=== PATIENT | female | born 1955 | race Caucasian/White ===

== ENCOUNTER → 2018-11-26 | Outpatient (CLI) | payer OTHER ==
[~2018-11-26] MED LIST: ATOR20TA22 PO; CALC-515 PO; CELE-1 PO; CEPH250C37 PO; CYCL1DRO6 OP; ESC10 PO; EST625 PO; ESTR42.5 VG; HYDR-385 PO; LEVO50TA86 PO; LEVO75TA68 PO; MULT-1335 PO; PER PO; [UNRECOGNIZED DRUG - CODE] PO
--- NOTE | 2018-12-07 13:32 | RADIOLOGY IMAGING REPORT ---
FACILITY: [facility] - [place] PATIENT NAME: PATRICK LY : [id number] MR: [id number] V: [id number] EXAM DATE: [id number] ORDERING PHYSICIAN: JESSICA PEDROZA TECHNOLOGIST: Melody Reyez PROCEDURE:BILATERAL DIGITAL SCREENING MAMMOGRAM WITH CAD ASSISTED INTERPRETATION & 3D TOMOSYNTHESIS COMPARISON:Prior mammograms 02/05/16, 07/18/13, 07/06/13. INDICATIONS:SCREENING FINDINGS: The breasts are heterogeneously dense which can obscure small masses. The parenchymal pattern has remained stable allowing for difference in mammographic technique & patient positioning. There are 2 biopsy clips present in the 12 o'clock position of the Right breast. DIAGNOSTIC CATEGORY 2--BENIGN FINDING. RECOMMENDATIONS: ROUTINE MAMMOGRAM AND CLINICAL EVALUATION. IMPRESSION: BIRADS 2: Benign finding. No significant abnormality is seen. Dictated by: Felicity Garza M.D. on 11/26/2018 at 11:03 Transcribed by: STEVEN on 11/26/2018 at 14:24 Approved by: Felicity Garza M.D. on 11/26/2018 at 15:50 [facility]
== END ==
LOC: MAMO 04:01
PROVIDERS: ATTEND Family Medicine
DX: Z12.31 Encounter for screening mammogram for malignant neoplasm of breast (principal)
CPT/HCPCS: 77063; 77067